=== PATIENT | female | born 1985 ===

== ENCOUNTER 2024-07-30 16:55 | Emergency (ER) | payer SELFPAY ==
[2024-07-30 16:57] VITALS: BP 136/86; PULSE 96; RESP 12; TEMP 36.7; O2SAT 97
[2024-07-30 18:00] LABS: Abs Immature Grans 0.05 10^3/uL (0.0-0.06); Absolute Basophil Count 0.04 10^3/uL (0.0-0.2); Absolute Eosinophil Count 0.59 10^3/uL (0.0-0.7); Absolute Lymphocyte Count 3.27 10^3/uL (1.2-3.4); Absolute Monocyte Count 0.35 10^3/uL (0.1-0.8); Absolute Neutrophil Count 3.98 10^3/uL (1.2-6.7); Basophils % 0.5 %; Eosinophils % 7.1 %; HCT 42.6 % (36.0-46.0); HGB 13.8 g/dL (11.2-15.7); Immature Grans % 0.6 %; Lymphocytes % 39.5 %; MCH 27.8 pg (27.0-33.0); MCHC 32.4 % (32.0-36.0); MCV 86 fL (80-95); MPV 9.8 fL (8.0-11.0); Monocytes % 4.2 %; Neutrophils % 48.1 %; Platelet Count 238 10^3/uL (130-400); RBC 4.97 10^6/uL (3.93-5.22); RDW 13.7 % (11.7-14.6); RDW-SD 43.2 fL; WBC 8.28 10^3/uL (4.4-10.8)
[2024-07-30 18:23] LABS: HIV 1/2 Ab Rapid Negative (Negative)
--- OUTSIDE RECORDS SUMMARY | 2024-07-30 18:28 | XMS_ITS | Encounter Summary ---
Author Organization [facility] Address [address] [place] [address] Care Team Providers Care Floor Representative Name Role Phone None, Provider Primary Care Provider Unavailabl e Encounter Details Date Type Department Care Team (Latest Contact Info) Description 07/19/2024 Travel Social History Tobacco Use Types Packs/Day Years Used Date Smoking Tobacco: Every Day Cigarettes Smokeless Tobacco: Never Alcohol Use Standard Drinks/Week Comments Not Currently 0 (1 standard drink = 0.6 oz pur e alcohol) Sex and Gender Information Value Date Recorded Sex Assigned at Not on file Gender Identity Female 07/19/2024 18:38 EDT Sexual Orientation Not on file documented as of this encounter Functional Status Functional Status Response Date of Assess ment Are you deaf or do you have serious difficulty h earing? No 07/19/2024 documented as of this encounter Plan of Treatment Not on file documented as of this encounter Visit Diagnoses Not on filedocumented in this encounter Care Teams Floor Representative Relationship Specialty Start Date End Date None, Provider PCP - General 07/19/24 documented as of this encounter
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
--- OUTSIDE RECORDS SUMMARY | 2024-07-30 18:28 | XMS_ITS | Clinical Summary ---
Author Organization [facility] Address [address] [place] [address] Care Team Providers Care Roller Coaster Operator Name Role Phone None, Provider Primary Care Provider Unavailabl e Allergies No known active allergies Medications Medication Sig Dispensed Refills Start Date End Date Status lisinopril (PRINIVIL) 2.5 mg tablet Take 1 Tablet by mouth daily. Active meloxicam (MOBIC) 15 mg tablet Take 1 Tablet by mouth daily. Active rosuvastatin (CRESTOR) 10 mg tablet Take 0.5 Tablets by mouth daily. Active semaglutide (OZEMPIC) 1 mg/dose (2 mg/1.5 mL) pen injector Inject 0.75 mL into the skin once a week. Active levothyroxine (SYNTHROID) 25 mcg tablet Take 3 Tablets by mouth daily. Active glipiZIDE (GLUCOTROL) 5 mg tablet Take 1 Tablet by mouth daily. Active ALPRAZolam (XANAX) 0.5 mg tablet Take 1 Tablet by mouth daily. Daily Max: 0.5 mg Active citalopram (CELEXA) 20 mg tablet Take 0.5 Tablets by mouth daily. Active Active Problems No known active problems Encounters Date Type Department Care Team Description 07/19/2024 18:50 EDT - 07/19/2024 20:[address] [facility] Emergency Department [address] [place] [address] Ant Duvall MD Hyperglycemia (Primary Dx); Homeless Discharge Disposition: Home or Self Care 07/19/2024 Travel from Last 3 Months Social History Tobacco Use Types Packs/Day Years [...] 18:38 EDT Sexual Orientation Not on file Obstetrics History Last Filed Vital Signs Vital Sign Reading Time Taken Comments Blood Pressure 152/98 07/19/20241839 EDT Pulse 98 07/19/20241839 EDT Temperature 36.6 ??C (97.9 ??F) 07/19/20241839 EDT Respiratory Rate 18 07/19/20241839 EDT Oxygen Saturation 98% 07/19/20241839 EDT Inhaled Oxygen Concentration - - Weight 113.3 kg (249 lb 11.2 oz) 07/19/20241839 EDT Height 167.6 cm (5' 6) 07/19/20241839 EDT Body Mass Index 40.3 07/19/20241839 EDT Plan of Treatment Health Maintenance Due Date Last Done Comments Hepatitis C Screen 1986 Hepatitis B Vaccine (1 of 3 - 19+ 3-dose series) 10/18 COVID-19 Vaccine ( season) 2024 Procedures Procedure Name Priority Date/Time Associated Diagnosis Comments POCT GLUCOSE, INTERFACED STAT 07/19/2024 19:55 EDT from Last 3 Months Results * (ABNORMAL) POCT GLUCOSE, INTERFACED (07/19/2024 19:55 EDT) Glucose, POC 322(H) 70 - 100 mg/dL 07/19/2024 19:56 EDT [facility] HN LAB POC COMMENT (GLUCOSE) Test Performed in ED 07/19/2024 19:56 EDT [facility] Blood CAPILLARY BLOOD / Unknown 07/19/2024 19:55 EDT 07/19/2024 19:56 EDT Ant Duvall MD POINT OF CARE TEST O RDERABLES [facility] [address] [place] [address] from Last 3 Months Care Teams Roller Coaster Operator Relationship Specialty Start Date End Date None, Provider PCP - General 07/19/24
--- OUTSIDE RECORDS SUMMARY | 2024-07-30 18:28 | XMS_ITS | Referral Summary ---
Author Organization [facility] Address [address] [place] [address] Care Team Providers Care National Expansion Recruiter Name Role Phone None, Provider Primary Care Provider Unavailabl e Encounters Date Type Department Care Team Description 07/19/2024 Travel 07/19/2024 18:50 EDT - 07/19/2024 20:22 EDT Emergency [facility] Emergency Department [address] [place] [address] Ant Duvall MD Hyperglycemia (Primary Dx); Homeless Discharge Disposition: Home or Self Care from Last 3 Months Allergies No known active allergies Medications Medication [...] Active Active Problems No known active problems Social History Tobacco Use Types Packs/Day Years [...] 18:38 EDT Sexual Orientation Not on file Last Filed Vital Signs Vital Sign Reading Time Taken Comments Blood Pressure 152/98 07/19/20241839 EDT Pulse 98 07/19/20241839 EDT Temperature 36.6 ??C (97.9 ??F) 07/19/20241839 EDT Respiratory Rate 18 07/19/20241839 EDT Oxygen Saturation 98% 07/19/20241839 EDT Inhaled Oxygen Concentration - - Weight 113.3 kg (249 lb 11.2 oz) 07/19/20241839 EDT Height 167.6 cm (5' 6) 07/19/20241839 EDT Body Mass Index 40.3 07/19/20241839 EDT Functional Status Functional Status Response Date of Assess ment Are you deaf or do you have serious difficulty h earing? No 07/19/2024 Plan of Treatment Not on file Procedures Procedure Name Priority Date/Time Associated Diagnosis Comments POCT GLUCOSE, INTERFACED STAT 07/19/2024 19:55 EDT from Last 3 Months Results * (ABNORMAL) POCT GLUCOSE, INTERFACED (07/19/2024 19:55 EDT) Glucose, POC 322(H) 70 - 100 mg/dL 07/19/2024 19:56 EDT [facility] HN LAB POC COMMENT (GLUCOSE) Test Performed in ED 07/19/2024 19:56 EDT [facility] Blood CAPILLARY BLOOD / Unknown 07/19/2024 19:55 EDT 07/19/2024 19:56 EDT Ant Duvall MD POINT OF CARE TEST O [place] [facility] [address] [place] [id number] from Last 3 Months Care Teams National Expansion Recruiter Relationship Specialty Start Date End Date None, Provider PCP - General 07/19/24
[2024-07-30 18:39] LABS: ALT 30 U/L (14-59); AST 15 U/L (15-37); Albumin 3.6 g/dL (3.4-5.0); Alkaline Phosphatase 93 U/L (46-116); Anion Gap 8.6 mmol/L (3-11); BUN 15 mg/dL (7-18); Bilirubin, Total 0.24 mg/dL (0.2-1.0); CO2 28.4 mmol/L (21.0-32.0); CREATININE 0.9 mg/dL (0.55-1.02); Calcium 9.2 mg/dL (8.5-10.1); Chloride 101 mmol/L (98-107); Estimated GFR 84.44 (mL/min/1.73m2); Glucose 343 mg/dL (74-106); Potassium 3.9 mmol/L (3.5-5.1); Sodium 138 mmol/L (136-145); TSH (W/Ref FT4) 1.75 uIU/mL (0.36-3.74); Total Protein 7.8 g/dL (6.4-8.2)
[2024-07-30 19:14] LABS: Bilirubin Negative (Negative); Blood Trace-intact (Negative); Clarity Sl Cloudy (Clear); Glucose >=1000 mg/dL (Negative); Ketones 15 mg/dL (Negative); Leukocyte Esterase Negative (Negative); Nitrite Negative (Negative); Specific Gravity >= 1.030 (1.005-1.025); Urobilinogen 0.2 mg/dL (Up to 0.2); pH 5.5 (5-8)
[2024-07-30 19:20] LABS: Bacteria Moderate HPF (Negative); C & S Indicated? Yes; Casts Negative LPF (Negative); Crystals Few Calcium Oxalate HPF (Negative); Epithelial Cells Few HPF (Negative); Mucus Moderate (Negative)
[2024-07-30] MEDS: metroNIDAZOLE 500 MG TAB, 3 TABS/BTL PO ×2 (20:15→20:21)
[2024-07-30] MEDS: Doxycycline Hyclate 100 MG, 2 CAPS/BTL PO ×2 (20:15→20:21)
[2024-07-30] MEDS: cefTRIAXone 500 MG VIAL IM (20:21)
[2024-07-30 20:22] VITALS: BP 124/79; PULSE 88; RESP 18; TEMP 37.4; O2SAT 100
[2024-07-30] MEDS: Lidocaine 1% Pres-Free 5 ML VIAL (20:22)
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
--- NOTE | 2024-07-31 18:05 | NUR.NOTE ---
Nursing Note: Pt called making sure that her prescriptions from yesterday was sent to [facility] in [place]. It was confirmed that this is the only pharmacy that we have on file for her and this is where they were sent.
[2024-07-31 19:30] LABS: HIV-1/2 Ag & Ab Screen Negative (Negative)
[2024-07-31 19:33] LABS: Hepatitis A Antibody IgM Negative (Negative); Hepatitis B Core Antibody Negative (Negative); Hepatitis B surface Ag Negative (Negative); Hepatitis C Ab w Rflx HCV PCR Negative (Negative)
[2024-08-01 11:33] LABS: Syphilis Serology (RPR) Negative (Negative)
[2024-08-01 12:13] LABS: Chlamydia Result Negative (Negative); GC Result Negative (Negative)
--- NOTE | 2024-08-01 16:35 | NUR.NOTE ---
[facility] pharmacy called stating that they did not have any prescriptions for the patient. Arnaldo Vela gave the prescritions by phone to the pharmacy. Nursing Note:
== END 2024-07-30 20:23 | disposition home or self-care (01) ==
PROVIDERS: Emergency Provider Physician Assistant
DX: A59.01 Trichomonal vulvovaginitis (principal); B96.89 Other specified bacterial agents as the cause of diseases classified elsewhere; N76.0 Acute vaginitis; E11.65 Type 2 diabetes mellitus with hyperglycemia; Z79.84 Long term (current) use of oral hypoglycemic drugs; F17.210 Nicotine dependence, cigarettes, uncomplicated
CPT/HCPCS: 36415; 80053; 81025; 86704; 86709; 86803; 87340; 87389; 87491; 87591; 96372; 99284; 81003; 81015; 84443; 85025; 86592; 87086; 87480; 87510; 87660; J0696; J2003